=== PATIENT | female | born 1970 | race Two or more races ===

== ENCOUNTER 2017-08-05 11:04 | Emergency (ER) | payer OTHER ==
[2017-08-05 11:09] VITALS: BP 147/65
--- NOTE | 2017-08-05 12:03 | ED ---
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 Patient is a hospital aide. States she took 600mg of ibuprofen 2 hours ago, gave some relief. States pain is mainly posterior/dorsal side and medial. Hurts with movement, better with rest. Denies any significant swelling or bruising. No other injuries or complaints. Denies numbness/tingling. Is right hand dominant. No other PMHx. - History of Current Complaint Chief Complaint: EDExtremityUpper Stated Complaint: LEFT WRIST INJURY Time Seen by Provider: 08/05/17 11:22 Hx Obtained From: Patient Mechanism Of Injury: Twisted Onset/Duration: Traumatic, Still Present Timing: Constant - with movement/use Severity Initially: Mild Severity Currently: Mild Pain Location: Wrist - left Character: Sharp - with movement, Aching Aggravating Factor(s): Movement Alleviating Factor(s): Rest Associated Signs & Symptoms: Positive: Negative Related History: Dominant Hand Right - Allergies/Home Medications Allergies/Adverse Reactions: Allergies Allergy/AdvReac Type Severity Reaction Status Date / Time No Known Allergies Allergy Verified 10/27/13 15:37 PMH/Surg Hx/FS Hx/Imm Hx Endocrine/Hematology History: Denies: Hx Diabetes, Hx Thyroid Disease Cardiovascular History: Reports: Hx Hypertension - ONLY WITH PREGNACY Denies: Hx Pacemaker/ICD Respiratory History: Reports: Other Respiratory Problems/Disorders - HX OF TB Denies: Hx Asthma, Hx Chronic Obstructive Pulmonary Disease (COPD) GI History: Denies: Hx Ulcer History: Denies: Hx Renal Disease Musculoskeletal History: Denies: Hx Rheumatoid Arthritis Sensory History: Denies: Hx Hearing Aid Psychiatric History: Denies: Hx Panic Disorder - Surgical History Surgery Procedure, Year, and Place: OVARIAN CYST,TUBAL LIGATION - Immunization History Immunizations Up to Date: Yes Infectious Disease History: No Infectious Disease History: Denies: Hx Hepatitis, Hx Human Immunodeficiency Virus (HIV), Traveled Outside the [place] in Last 30 Days - Family History Known Family History: Negative: Hypertension, Diabetes - Social History Alcohol Use: Occasionally Hx Substance Use: No Substance Use Type: Reports: None Hx Tobacco Use: No Smoking Status (MU): Never Smoked Tobacco Review of Systems Constitutional: Negative Respiratory: Negative Gastrointestinal: Negative Positive: Arthralgia, Myalgia, Decreased ROM - left wrist Skin: Negative Neurological: Negative All Other Systems Reviewed And Are Negative: Yes Physical Exam Triage Information Reviewed: Yes Vital Signs On Initial Exam: Initial Vitals Temp Pulse Resp BP Pulse Ox 98.5 F 63 20 147/65 100 08/05/17 11:06 08/05/17 11:06 08/05/17 11:06 08/05/17 11:06 08/05/17 11:06 slightly elevated BP, recommend follow up with pcp in a few weeks for recheck. Vital Signs Reviewed: Yes Appearance: Positive: Well-Appearing, No Pain Distress, Well-Nourished Skin: Positive: Warm, Skin Color Reflects Adequate Perfusion, Dry. Negative: Cold, Cyanosis @, Pale, Erythema @ Eyes: Positive: Conjunctiva Clear ENT: Positive: Hearing grossly normal Neck: Positive: Supple, Nontender Respiratory/Lung Sounds: Positive: Clear to Auscultation, Breath Sounds Present. Negative: Rales, Rhonchi, Wheezes Cardiovascular: Positive: Normal, RRR, Pulses are Symmetrical in both Upper and Lower Extremities - 2+ radial. Negative: Murmur, Rub Musculoskeletal: Positive: Limited @ - has some limited ROM with left wrist, able but painful, mainly dorsal medial side, Pain @ - on palpation of dorsal medial side of left wrist. no snuff box tenderness. rest of hand/fingers non tender, Other - no crepitus, step off or obvious deformity, no ecchymosis. rest of MSK exam normal and non tender. FROM of left hand/fingers. Negative: Interruption @, Abnormal @, Edema Left, Edema Right Neurological: Positive: Normal, Sensory/Motor Intact - sensation normal and intact, Alert, Oriented to Person Place, Time, NV Bundle Intact Distally, Normal Gait Diagnostics - Vital Signs Vital Signs Temp Pulse Resp BP Pulse Ox 08/05/17 11:06 98.5 F 63 20 147/65 100 - Laboratory Lab Statement: Any lab studies that have been ordered have been reviewed, and results considered in the medical decision making process. - Radiology left xray Xray Interpretation: No Acute Changes - Normal radiograph of the left wrist. If the patient's symptoms persist, follow-up imaging is recommended. Radiology Interpretation Completed By: Radiologist Course/Dx - Course Course Of Treatment: already took ibuprofen [employer]IVE. xray obtained and negative. given brace. RICE and NSAIDs at home. appears to have suffered a sprain. no snuff box tendereness and has good ROM although related with pain. Aware of worsening signs and symptoms. Refrain from use. Follow up with PCP. Splint x 7 days or until symptoms improve. - Diagnoses Differential Diagnosis/HQI/PQRI: Positive: Contusion, Fracture (Closed), Strain , Sprain Provider Diagnoses: Left wrist sprain Discharge - Discharge Plan Condition: Improved Disposition: HOME Patient Education Materials: Wrist Sprain (ED) Forms: *Work Release Referrals: Luis BARNES,Guille Pyle [Primary Care Provider] - Additional Instructions: Please continue to take ibuprofen as needed for pain and inflammation. Recommend taking it for the next 2-3 days, with food. Wear brace and jason wrap for compression and support. Rest, ice and elevate. Refrain from use until symptoms improve. Follow up with PCP. If symptoms worsen, new symptoms develop or do not improve please seek medical attention promptly.
--- NOTE | 2017-08-05 12:19 | RAD ---
INDICATION: Left ulnar wrist pain after catching a falling patient COMPARISON: Similar radiograph dated November 14, 2012 TECHNIQUE: 3 views left wrist. REPORT: The visualized bones are properly aligned and well corticated. The joint spaces are normal.There is no fracture, dislocation or other focal osseous abnormality. IMPRESSION: Normal radiograph of the left wrist. If the patient's symptoms persist, follow-up imaging is recommended.
== END 2017-08-05 12:36 | disposition home or self-care (01) ==
LOC: ED 11:04
DX: S63.502A Unspecified sprain of left wrist, initial encounter (principal); X50.0XXA Overexertion from strenuous movement or load, initial encounter; Y93.F2 Activity, caregiving, lifting; Y92.230 Patient room in hospital as the place of occurrence of the external cause; Y99.0 Civilian activity done for income or pay
CPT/HCPCS: 99282

== ENCOUNTER 2019-04-12 09:18 | Emergency (ER) | payer SELFPAY ==
[2019-04-12 09:38] VITALS: BP 135/74
--- NOTE | 2019-04-12 09:48 | UC ---
Dizzy HPI HPI Summary: 48 yo female presents with dizziness. She tells me that for the past 2 days she has had a sensation that the "room is spinning" anytime she turns her head or changes position from lying to sitting or sitting to lying. She had this same thing happen about 10 years ago and remembers she was told it was vertigo and that she took some "medicine" and it went away. She is feeling well otherwise, except for some slight nausea due to the spinning sensation. Denies headache, sinus symptoms, sore throat, cough, SOB, chest pain, abdominal pain, vomiting, dysuria. - History Of Current Complaint Chief Complaint: UCDizziness Stated Complaint: DIZZY Time Seen by Provider: 04/12/19 09:48 Hx Obtained From: Patient Hx Last Menstrual Period: 04/07/18 Onset/Duration: Sudden Onset Severity Currently: None Pain Intensity: 0 - Allergies/Home Medications Allergies/Adverse Reactions: Allergies Allergy/AdvReac Type Severity Reaction Status Date / Time No Known Allergies Allergy Verified 04/12/19 09:38 PMH/Surg Hx/FS Hx/Imm Hx - Additional Past Medical History Additional PMH: None - Surgical History Surgical History: Yes Surgery Procedure, Year, and Place: OVARIAN CYST,TUBAL LIGATION - Family History Known Family History: Negative: Hypertension, Diabetes - Social History Occupation: Employed Full-time Lives: With Family Alcohol Use: Occasionally Substance Use Type: None Smoking Status (MU): Never Smoked Tobacco Review of Systems All Other Systems Reviewed And Are Negative: Yes Constitutional: Positive: Negative Skin: Positive: Negative Eyes: Positive: Negative ENT: Positive: Negative Respiratory: Positive: Negative Cardiovascular: Positive: Negative Gastrointestinal: Positive: Nausea Genitourinary: Positive: Negative Neurovascular: Positive: Negative Musculoskeletal: Positive: Negative Neurological: Positive: Other - Dizziness Psychological: Positive: Negative Physical Exam - Summary Physical Exam Summary: GENERAL: NAD. WDWN. No pain distress. SKIN: No rashes, sores, ulcers, masses, lesions. HEENT: Head: AT/NC. Eyes: PERRLA. EOM intact. Conjunctiva clear without inflammation or discharge. Ears: Hearing grossly normal. TMs intact, no bulging, erythema, or edema. No hemotympanum Nose: Nasal mucosa pink and moist. NTTP maxillary and frontal sinus. Throat: Posterior oropharynx without exudates, erythema, or tonsillar enlargement. Uvula midline. NECK: Supple. Nontender. FROM CHEST: CTAB. No r/r/w. No accessory muscle use. Breathing comfortably and in no distress. CV: RRR. Without m/r/g. Pulses intact. Brisk cap refill. ABDOMEN: Soft. NTTP. Bowel sounds present MSK: FROM in B/L UEs and LEs with symmetric strength. NEURO: A&Ox3. 3 word recall, remote, recent memory, ability to follow 2-step directions, and attention intact. CN: II: Peripheral escamilla intact. Vision normal. III, IV, : EOMI. MILD HORIZONTAL nystagmus b/l with position change. PERRLA. V: Sensations intact and symmetric. Opens mouth and clenches teeth. VII: No facial asymmetry. Forehead wrinkles. Grins, shuts eyes, frowns, puffs cheeks. VIII: Hearing intact to finger rub. IX, X: Swallows and coughs. Uvula midline. XI: Shrugs shoulders. Turns head against resistance. XII: No tongue deviation Finger -to-nose are intact. Gait with normal base. Romberg: maintains balance, no pronator drift. Normal speech. No facial drooping. PSYCH: Age appropriate behavior. Triage Information Reviewed: Yes Vital Signs: Initial Vital Signs Temp 98.8 F 04/12/19 09:35 Pulse 67 04/12/19 09:35 Resp 16 04/12/19 09:35 BP 135/74 04/12/19 09:35 Pulse Ox 100 04/12/19 09:35 Vital Signs Reviewed: Yes Dizzy Course/Dx - Course Course Of Treatment: Suspect vertigo. In the clinic pt was given meclizine for her vertigo and zofran for her nausea. Will rx for meclizine to take for 1 week. Advised that if her symptoms change/worsen to be rechecked or go to the ED immediately. If her vertigo is not improved within 3-5 days to be rechecked as well. - Differential Dx/Diagnosis Provider Diagnosis: Vertigo Discharge - Sign-Out/Discharge Documenting (check all that apply): Patient Departure All imaging exams completed and their final reports reviewed: No Studies - Discharge Plan Condition: Stable Disposition: HOME Prescriptions: Meclizine HCl [Dramamine Less Drowsy] 25 mg PO DAILY #7 tablet Patient Education Materials: Vertigo (ED) Referrals: Luis BARNES,Guille Pyle [Primary Care Provider] - Additional Instructions: If you develop a fever, shortness of breath, chest pain, new or worsening symptoms - please call your PCP or go to the ED immediately. 1) Please take the meclizine daily for 7 days starting tomorrow as you were given a dose in the clinic today 2) If your dizziness/vertigo does not improve within 3-5 days - please be rechecked - Billing Disposition and Condition Condition: STABLE Disposition: Home
[2019-04-12] MEDS ORDERED: Meclizine TAB* 12.5 MG PO ONE (09:55)
[2019-04-12] MEDS ORDERED: Ondansetron ODT TAB* 4 MG SL ONE (09:56)
== END 2019-04-12 10:05 | disposition home or self-care (01) ==
LOC: UCEAST 09:18
DX: R42 Dizziness and giddiness (principal)
CPT/HCPCS: 99212; A9270-GY; G0463

== ENCOUNTER 2023-02-16 05:43 | Inpatient (IN) ==
[~2023-02-16 05:43] MED LIST: Naloxone 0.4 mg VIAL 0.4 mg/ml 1 ml VIAL IV PRN; Ondansetron ODT 4 mg TAB 4 MG TAB PO ONE; Scopolamine 1 mg/72hr PATCH TRANSDERM ONE; fentaNYL 100 mcg/2 ml 50 MCG/ML VIAL IV PRN
[2023-02-16] MEDS ORDERED: Buffered Lidocaine 1% SYRIN 1 ml INTRADERM ONE (06:00)
[2023-02-16] MEDS ORDERED: Lactated Ringers 1000 ml BAG 1,000 ML IV SCH ×2 (06:00→10:00)
[2023-02-16] MEDS ORDERED: Ondansetron ODT 4 mg TAB 4 MG TAB ONE (06:19)
[2023-02-16] MEDS ORDERED: ceFOXitin 2 GM IVPREMIX 2 GM/50 ML BAG ONE (06:19)
[2023-02-16] MEDS ORDERED: Scopolamine 1 mg/72hr PATCH ONE (06:19)
[2023-02-16 06:55] LABS: Rapid COVID-19 Molecular Undetected (Undetected)
[2023-02-16] MEDS ORDERED: Midazolam 2 mg/2 ml VIAL 1 mg/ml 2 ml VIAL (2 mg) ONE (07:04)
[2023-02-16] MEDS ORDERED: fentaNYL 250 mcg/5 ml 50 MCG/ML 5 ml VIAL (250 MCG) ONE (07:04)
[2023-02-16] MEDS ORDERED: Rocuronium 50 mg VIAL 10 mg/ml 5 ml VIAL (50 mg) ONE ×2 (07:04→09:10)
[2023-02-16] MEDS ORDERED: Lidocaine 2% PF 5 ML VIAL ONE (07:06)
[2023-02-16] MEDS ORDERED: Sevoflurane BOTTLE ONE (07:06)
[2023-02-16] MEDS ORDERED: Acetaminophen IV 1 GM/100ML 0 MG/0 ML BAG IV ONE (07:06)
[2023-02-16] MEDS ORDERED: Ondansetron 4 mg VIAL 2 MG/ML 2 ml VIAL ONE ×2 (07:07→11:18)
[2023-02-16] MEDS ORDERED: Propofol 10 MG/ML 20 ML BTL ONE (07:07)
[2023-02-16] MEDS ORDERED: Dexamethasone IV 4 MG/ML VIAL 1 ml VIAL ONE (07:07)
[2023-02-16] MEDS ORDERED: Bupivacaine 0.25% SDV 30 ML ONE (07:43)
[2023-02-16] MEDS ORDERED: Atropine 0.1 MG/ML 10 ml SYR (1 mg) ONE (09:16)
[2023-02-16] MEDS ORDERED: Glycopyrrolate IV 0.2 MG/ML 1 ML VIAL ONE (09:31)
[2023-02-16] MEDS ORDERED: HYDROmorphone 0.5 MG/0.5 ML SYRINGE ONE (09:44)
[2023-02-16] MEDS ORDERED: oxyCODONE/Acetamin 5/325 mg TAB PO PRN (09:56)
[2023-02-16] MEDS ORDERED: Simethicone SUSP ORALSYR 66.66 MG/ML PO PRN (10:11)
[2023-02-16] MEDS ORDERED: HYDROmorphone 1 MG/1 ML SYRINGE ONE (10:20)
[2023-02-16] MEDS ORDERED: Levalbuterol 0.63MG/3ML NEB UNIT OF USE INH ONE ×2 (10:53→11:12)
[2023-02-16] MEDS: Ondansetron 4 mg VIAL 2 MG/ML 2 ml VIAL IV PRN ×2 (11:20→16:43)
[2023-02-16] MEDS ORDERED: Al Hydrox/Mg Hydrox/Simet LIQ 30 ML UDC PO PRN (11:39)
[2023-02-16] MEDS ORDERED: Pantoprazole VIAL 40 MG VIAL IV SCH (12:00)
[2023-02-16] MEDS ORDERED: Pantoprazole VIAL 40 MG VIAL ONE (12:42)
[2023-02-16] MEDS ORDERED: Prochlorperazine 5 mg/ml 2 ml VIAL (10 mg) ONE (12:42)
[2023-02-16] MEDS: Prochlorperazine 5 mg/ml 2 ml VIAL (10 mg) IV PRN ×2 (12:46→18:22)
[2023-02-16] MEDS: Pantoprazole VIAL 40 MG VIAL IV SCH (13:00)
[2023-02-16 13:11] LABS: High Sensitivity Troponin 1 Hr 23 pg/mL (<15)
[2023-02-16 15:34] LABS: ABS Lymphocytes 0.3 10^3/uL (1.0-4.8); ABS Monocytes 0.3 10^3/uL (0.0-0.9); ABS Neutrophils 10.4 10^3/uL (1.5-7.6); Hematocrit 35.2 % (35-45); Hemoglobin 12.1 g/dL (11.5-14.3); Lymphocyte % 3.1 %; Mean Corpuscular Hemoglobin 30.4 pg (27-33); Mean Corpuscular Hgb Conc 34.2 g/dL (31-36); Mean Corpuscular Volume 88.9 fL (80-97); Platelet Count 240 10^3/uL (150-450); Red Blood Count 3.96 10^6/uL (3.63-4.92); Red Cell Distribution Width 13.7 % (12-17); White Blood Count 11.1 10^3/uL (3.8-11.8)
[2023-02-16 15:56] LABS: Albumin 4.3 g/dL (3.2-5.2); Albumin/Globulin Ratio 1.8 (1-3); Calcium 8.7 mg/dL (8.6-10.3); Creatinine, Serum 0.52 mg/dL (0.51-0.95); Globulin 2.4 g/dL (2-4); HDL Cholesterol 59.8 mg/dL; Potassium 3.7 mmol/L (3.5-5.0); Total Bilirubin 0.4 mg/dL (0.2-1.0); Total Protein 6.7 g/dL (6.4-8.9)
[2023-02-16 18:52] LABS: Urine Appearance Clear; Urine Bilirubin Negative (Negative); Urine Blood 2+ (Negative); Urine Color Amber; Urine Glucose Negative (Negative); Urine Ketones Trace (Negative); Urine Nitrite Positive (Negative); Urine Protein 1+(30 mg/dL) (Negative); Urine Specific Gravity 1.017 (1.002-1.030); Urine Urobilinogen Positive (Negative)
[2023-02-16 19:14] LABS: Urine Bacteria 1+ (Absent); Urine Red Blood Cell 3+(>10/hpf) (Absent); Urine Squamous Epithelial Cell Present (Absent); Urine White Blood Cell 1+(6-10/hpf) (Absent)
[2023-02-16] MEDS ORDERED: Acetaminophen IV 1 GM/100ML 1,000 MG/100 ML BAG IV ONE (19:37)
[2023-02-16] MEDS ORDERED: Metoclopramide 5 MG/ML VIAL (10 mg) IV ONE (20:23)
[2023-02-17 06:32] LABS: ABS Lymphocytes 1.1 10^3/uL (1.0-4.8); ABS Monocytes 0.7 10^3/uL (0.0-0.9); ABS Neutrophils 5.9 10^3/uL (1.5-7.6); Eosinophil % 0.4 %; Hematocrit 33.5 % (35-45); Hemoglobin 11.5 g/dL (11.5-14.3); Lymphocyte % 13.8 %; Mean Corpuscular Hemoglobin 30.7 pg (27-33); Mean Corpuscular Hgb Conc 34.5 g/dL (31-36); Mean Corpuscular Volume 89.1 fL (80-97); Mean Platelet Volume 8.4 fL (7.5-11.2); Platelet Count 220 10^3/uL (150-450); Red Blood Count 3.76 10^6/uL (3.63-4.92); Red Cell Distribution Width 13.7 % (12-17); White Blood Count 7.6 10^3/uL (3.8-11.8)
[2023-02-17] MEDS: Pantoprazole VIAL 40 MG VIAL IV SCH (07:43)
[2023-02-17] MEDS ORDERED: NF:ZOLMitriptan 5 mg ODT (NF) SL PRN (08:20)
[2023-02-17 14:32] VITALS: BP 107/70
== END 2023-02-17 17:40 | disposition home or self-care (01) | DRG 519 ==
LOC: OR 05:43 → SSU 09:56
PROVIDERS: ADMIT Obstetrics & Gynecology; ATTEND Obstetrics & Gynecology
PROC: [UNRECOGNIZED PROCEDURE] (2023-02-16 07:30)